=== PATIENT | female | born 1970 | race Caucasian/White ===

== ENCOUNTER → 2018-08-28 | Outpatient (CLI) | payer OTHER ==
--- NOTE | 2018-09-18 18:40 | HM ---
HOLTER MONITOR REPORT 24-HOUR HOLTER REPORT: Patient in her diary had one episode when she felt lightheaded. Predominant rhythm appears to be sinus with the heart rate ranging from 64 to 140 beats per minute with an average heart rate of 90 beats per minute. There was some artifact noted. At the time patient complained of lightheadedness, she was in a sinus rhythm at a rate of 104 beats per minute with some artifact. There was no evidence of any significant ventricular or supraventricular ectopic beats. There was no evidence of any significant bradyarrhythmia. Rare isolated PVCs were noted. FINAL IMPRESSION: Unremarkable 24-hour DCG with sinus rhythm and sinus tachycardia with average heart rate of 91 beats per minute. At the time, patient felt lightheaded. She was in a sinus rhythm without significant arrhythmia. Rare PVCs were noted. No bradycardia was observed. MMODL / IJN: [id number] /
== END | disposition home or self-care (01) ==
LOC: RADECHMAIN 12:05
PROVIDERS: ATTEND Psychiatry & Neurology Pain Medicine
DX: R55 Syncope and collapse (principal)
CPT/HCPCS: 93225; 93226

== ENCOUNTER → 2018-09-17 | Day surgery (SDC) | payer OTHER ==
[2018-09-06 13:20] VITALS: BMI 21.4
[~2018-09-17] MED LIST: SODIUM CHLORIDE 0.9% 1,000 ML IV SCH
[2018-09-17 12:07] VITALS: BP 111/67; PULSE 91; RESP 18; TEMP 98
--- NOTE | 2018-09-17 13:54 | P.PCN ---
Preoperative Diagnosis: Diagnosis Recurrent presyncope and syncope Twelve-lead ECG Sinus rhythm normal OK narrow QRS normal ECG Tilt table test per protocol Baseline blood pressure 107/56 milligrams of mercury Baseline heart rate 111 beats a minute patient was tilted upright at an angle of 70 per protocol there was an immediate drop in blood pressure 99/57 mmHg. This was associated with dizziness following that her blood pressure stabilized and she became asymptomatic. There was no further changes in her heart rate and blood pressure Impression Mild orthostatic hypotension initially upon standing up but thereafter her blood pressure remained stable Mild increase in heart rate by about 20 bpm upon standing When she was laid supine her heart rate went back into the 90s Impression Mild orthostatic hypotension No evidence for neurocardiogenic syncope Mild orthostatic intolerance
== END ==
LOC: CATHEP 11:38
PROVIDERS: ATTEND Internal Medicine Clinical Cardiac Electrophysiology
DX: I95.1 Orthostatic hypotension (principal)
CPT/HCPCS: 93660

== ENCOUNTER → 2020-04-06 | Outpatient (CLI) | payer OTHER ==
[2020-04-06 21:51] LABS: Appearance,CSF Clear; CSF Tube Number 4; CSF Tube Volume 3; Nucleated Cells, CSF 0 u/L (0-5); Red Blood Cell,CSF 0 u/L (0-10)
[2020-04-06 21:55] LABS: Total Protein,CSF 45 mg/dL (12-60)
[2020-04-09 12:16] LABS: IgG - CSF 1.8 mg/dL (0.0 - 3.4); IgG/Albumin Index (CSF) 0.41 (0.00 - 0.77); Immunoglobulin G 954 mg/dL (700 - 1600)
== END | disposition home or self-care (01) ==
LOC: LABWHC1 10:09
PROVIDERS: ATTEND Psychiatry & Neurology Pain Medicine
DX: R90.82 White matter disease, unspecified (principal)
CPT/HCPCS: 36415; 82040; 82042; 82784; 83873; 83916; 84157; 87801; 88108; 89050

== ENCOUNTER → 2021-04-20 | Outpatient (CLI) | payer OTHER ==
--- NOTE | 2021-04-20 22:11 | MR ---
EXAMINATION TYPE: MR lumbar spine wo con DATE OF EXAM: 04/20/2021 COMPARISON: None HISTORY: 50-year-old female lumbar degenerative disc disease, low back pain. TECHNIQUE: Multiplanar, multisequence images of the lumbar spine were acquired. FINDINGS: Vertebral body heights are preserved. Degenerative grade 1 anterolisthesis L4-L5 secondary to hypertrophic facet arthropathy. Conus medullaris is normal. There is no suspicious bone marrow replacement. Mild degenerative disc disease throughout with bulging discs. Mild disc desiccation L4-L5. Ligamentum flavum thickening along with the facet arthropathy in the mid to lower lumbar spine. No large focal disc herniation or significant spinal canal stenosis. 2.2 cm sacral Tarlov cyst right S2-S3 neuroforamen. Changes result in mild bilateral neuroforaminal stenosis at L4-L5 and L5-S1. No high-grade foraminal compromise. Pronounced urinary bladder distention up to at least 9.2 cm wide. IMPRESSION: 1. Hypertrophic facet arthropathy and ligamentum flavum thickening mid to lower lumbar spine with deg enerative grade 1 anterolisthesis L4-L5. 2. Mild degenerative disc disease throughout, greatest at L4-L5. No large focal disc herniation or si gnificant spinal canal stenosis. 3. Changes result in mild neural foraminal stenoses on both sides at L4-L5 and L5-S1. 4. A prominent 2.2 cm sacral Tarlov cyst on the right at S2-S3, probably incidental. Uncommonly, thes e be can be symptomatic. 5. Pronounced distention of the urinary bladder up to at least 9.2 cm wide. Please correlate to ensur e that this represents voluntary retention.
== END | disposition home or self-care (01) ==
LOC: RADMRIMAIN 15:03
PROVIDERS: ATTEND Psychiatry & Neurology Neurology
DX: M51.36 Other intervertebral disc degeneration, lumbar region (principal); M99.73 Connective tissue and disc stenosis of intervertebral foramina of lumbar region; M12.88 Other specific arthropathies, not elsewhere classified, other specified site; M43.16 Spondylolisthesis, lumbar region
CPT/HCPCS: 72148